=== PATIENT | female | born 1960 | race Caucasian/White ===

== ENCOUNTER 2021-09-04 16:00 | Outpatient (RCR) | payer OTHER, SELFPAY ==
--- NOTE | 2021-06-14 12:24 | PTOPEVAL ---
Thank you for referring Mikaela Gross to [facility].? The patient is scheduled to be seen for therapy? 2 x/week for 5 weeks. Please review, sign, date and return this plan of care JONY. I agree with and certify that the following plan of care is medically necessary. Referring Physician Date Attending Provider: Darryl Ovalles, MD Diagnosis chronic LBP Onset 03/27/21 Additional Evaluation Detail x-ray and MRI: bulging disc of L1-4 anterolisthesis L4-5, DDD of lumbar region. history of SIJ rotation with self-corrections. Subjective Information She injured her back at work Query Text:As Reported By Patient/ lifting a pt. She was denied Family services by work comp. 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 She has recently received chiropractor treatment with improved pain. She c/o back muscle spasm with all activities. C/o neck/and leg spasms due to the back. She c/o constant ache in her back with increased pain with any lifting. She has increased pain with work and household task, rolling. 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 Pain Assessment Lower Back Reported Pain Level 4 Pain Description Aching,Spasms Pain Frequency Continuous Lowest Pain Intensity 2 Greatest Pain Intensity 10 Pain Aggravating Factors Bending,Exercise/Activity, Lifting,Sitting,Weight Bearing /Standing Cervical and Lumbar ROM Lumbar ROM Lumbar Flexion Active Mid Cavazos:Hands to: Lateral Flexion distal thigh:Active Hands to: Lumbar Comments 50% trunk ext with primary motion thoracic region vs lumbar pain with all trunk motions Cervical and Lumbar Muscle Testing Lumbar Strength Upper Abdominal Strength 3 Fair Lower Abdominal Strength 3 Fair Upper Back Extension 3 Fair Lower Back Extension 3 Fair Lower Extremity Muscle Strength Testing Hip Strength Right Hip Flexion
--- NOTE | 2021-06-26 12:00 | PCPTNOTE ---
Patient called & cancelled scheduled appointment this date due to having to work late today.
--- NOTE | 2021-07-11 15:53 | PCPTNOTE ---
Patient did not show up for scheduled appointment this date. Called and spoke with Pt, she apologized for forgetting about appointment. Reminded Pt of upcoming appointment on Thursday07/16/2019 @ 16:00.
--- NOTE | 2021-07-18 17:00 | PTOPEVAL ---
PHYSICAL THERAPY PROGRESS REPORT Thank you for referring Mikaela Gross to [facility] [place].? The patient is scheduled to be seen for therapy? 2x/week for 5 weeks. Please review, sign, date and return this plan of care JONY. I agree with and certify that the following plan of care is medically necessary. Referring Physician Date Diagnosis chronic LBP Onset 03/27/21 Additional Evaluation Detail x-ray and MRI: bulging disc of L1-4 anterolisthesis L4-5, DDD of lumbar region. history of SIJ rotation with self-corrections. Subjective Information states that she was starting Query Text:As Reported By Patient/ to feel some improvement. The Family Dry needling caused some spasms into her low back so she would not like to do that again. Self Report Pain Assessment Lower Back Reported Pain Level 4 Pain Description Aching,Spasms,Tightness Pain Frequency Continuous Pain Aggravating Factors Bending,Exercise/Activity, Lifting,Sitting,Weight Bearing /Standing Pain Score Pain Score 4: Self Report Interventions Used Interventions Used By Clinicians Education,Exercise Pain Relief Interventions Used By Heat Patient Cervical and Lumbar ROM Lumbar ROM Lumbar Flexion Active Ankle Query Text:Hands to: Lateral Flexion distal thigh Query Text:Active Hands to: Lumbar Comments hanane's sign upon return to standing Cervical and Lumbar Muscle Testing Lumbar Strength Upper Abdominal Strength 3 Fair Lower Abdominal Strength 3 Fair Upper Back Extension 3 Fair Lower Back Extension 3 Fair Lower Extremity Muscle Strength Testing Hip Strength Right Hip Flexion Strength 5 Normal Hip Extension Strength 4 Good Hip Abduction Strength 4- Good - Left Hip Flexion Strength 4 Good Hip Extension Strength 3+ Fair + Hip Abduction Strength 3 Fair Knee Strength Bilateral Knee Flexion Strength 5 Normal Knee Extension Strength 5 Normal Muscle Length Testing Muscle Length Testing Two-Joint Hip Flexor Shortened Muscles Short (R) Iliopsoas,Short (L) Iliopsoas,Short (R) Rectus Femoris,Short (L) Rectus Femoris,Short (R) Ilial Tib Band,Short (L) Ilial Tib Band Piriformis w/Hip Neutral
--- NOTE | 2021-08-22 17:17 | PCPTNOTE ---
Patient called & cancelled scheduled appointment this date due to not feeling well.
--- NOTE | 2021-08-26 17:11 | PTOPEVAL ---
PHYSICAL THERAPY PROGRESS REPORT Thank you for referring Mikaela Gross to [facility].? The patient is scheduled to be seen for therapy? 2x/week for 6 weeks. Please review, sign, date and return this plan of care JONY. I agree with and certify that the following plan of care is medically necessary. Referring Physician Date Attending Provider: Darryl Ovalles, MD Diagnosis chronic LBP Onset 03/27/21 Additional Evaluation Detail x-ray and MRI: bulging disc of L1-4 anterolisthesis L4-5, DDD of lumbar region. history of SIJ rotation with self-corrections. Subjective Information continues to feel overall Query Text:As Reported By Patient/ better and improved. Oswestry Family score was initially 58% limited and is now ) Self Report Pain Assessment Lower Back Reported Pain Level 3 Pain Description Aching,Spasms,Tightness Pain Frequency Continuous Pain Aggravating Factors Bending,Exercise/Activity, Lifting,Sitting,Weight Bearing /Standing Cervical and Lumbar ROM Lumbar ROM Lumbar Flexion Active Ankle Query Text:Hands to: Lateral Flexion distal thigh Query Text:Active Hands to: Lumbar Comments no hanane's sign today Lower Extremity Muscle Strength Testing Hip Strength Right Hip Flexion Strength 5 Normal Hip Extension Strength 4 Good Hip Abduction Strength 4- Good - Left Hip Flexion Strength 5 Normal Hip Extension Strength 4- Good - Hip Abduction Strength 4- Good - Knee Strength Bilateral Knee Flexion Strength 5 Normal Knee Extension Strength 5 Normal Muscle Length Testing Muscle Length Testing Two-Joint Hip Flexor Shortened Muscles Short (R) Iliopsoas,Short (L) Iliopsoas,Short (R) Rectus Femoris,Short (L) Rectus Femoris,Short (R) Ilial Tib Band,Short (L) Ilial Tib Band Piriformis w/Hip Neutral (R) Moderate Tightness,(L) Moderate Tightness Right Prone Hip Internal Rotator Length 15 (degrees) Left Prone Hip Internal Rotator Length ( 22 degrees) Right Straight Leg Raise Muscle Length ( 80 degrees) Left Straight Leg Raise Muscle Length ( 80 degrees) Left Hamstring Length -15 Query Text:(90 - 90 Position) Right Hamstring Length -15 Query Text:(90 - 90 Position) Postu
--- NOTE | 2021-09-05 08:38 | PCPTNOTE ---
This treatment is being continued on visit number [id number]. Please see documentation on both accounts to view progress. Completed interventions, outcomes, and problems have been marked as Inactive to facilitate the copying of the Care plan routine for recurring accounts.
== END 2021-09-05 07:30 | disposition home or self-care (01) ==
LOC: ANHPT 16:00
PROVIDERS: PCP Internal Medicine; Visit Provider Internal Medicine
DX: M54.50 Low back pain, unspecified (principal); G89.29 Other chronic pain
CPT/HCPCS: 97012; 97014; 97110; 97112; 97140; 97162; 97530; G0283

== ENCOUNTER 2021-12-04 16:15 | Outpatient (RCR) | payer OTHER, SELFPAY ==
--- NOTE | 2021-09-05 08:39 | PCPTNOTE ---
The treatment documented on this account is a continuation of the treatment documented on visit number [id number]. Please see documentation on both accounts to view progress. The Plan of Care has been transitioned and updated within the new V#. I have addressed and agree with the discipline specific Problems, Interventions, and Goals for the current certification period. Completed interventions, outcomes, and problems have been marked as Inactive to facilitate the copying of the Care plan routine for recurring accounts.
--- NOTE | 2021-09-17 08:23 | PCPTNOTE ---
Patient called & cancelled scheduled appointment this date due to having to work.
--- NOTE | 2021-09-23 16:25 | PCPTNOTE ---
Patient did not show up for scheduled appointment this date; called patient who answered the phone stating she meant to call and canceled due to increase back pain even calling off work due to taking medication just forgot.
--- NOTE | 2021-10-18 17:16 | PTOPPROG ---
Evaluation Information Assessment Status Progress Diagnosis chronic LBP Onset 03/27/21 Subjective Information Pt states she continues to have good days and bad days, she reports today is a bad day. She reports this includes increased muscle spasms. She states she feels like she is improvement but no where back to normal yet. She states she has tweaked her back since her last progress report. She reports her pain and stiffness in worse in the morning and makes getting out of bed and getting ready really challenging. She reports being limited to lifting 20lbs without an increase in back pain later. Clinical Summary Mikaela presents to therapy today for her progress report following 19 visits of therapy to treat her back pain. She reports she is almost to where she was, prior to tweaking her back again. She demonstrates slow changes but improvement in her LE strength, LE motion, as well as lumbar ROM, and core strength. She reports 60% disability on the modified Oswestry questionnaire. She reports good compliance with her HEP. Continuation of skilled physical therapy services are indicated to address the remaining deficits, to manage pain, to promote unlimited functional mobility, and to return to baseline. Treatment frequency 2x/wk for 5 wks These treatments will address the objective and functional deficits as defined above. The patient will be advanced safely and appropriately in order for the patient to progress towards his/her prior level of function. Additional exercises will be introduced and as well as a comprehensive home exercise program upon discharge, if needed, ?to ensure carryover of functional gains achieved in the clinic. This treatment plan has been reviewed and agreement upon by the patient.
--- NOTE | 2021-11-19 16:35 | PTOPPROG ---
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 She states this caused her back to spasm, she tried to help this with heating pads. She states even prior to this event her pain was getting down to a 1-2/10. She states she cannot work without her back brace. She states she cannot do her normal job without her back brace. Assessment PT Clinical Summary Mikaela presents to therapy today for her progress report following 26 visits of skilled therapy. Today she demonstrates good LE strength, fair lumbar motion, and poor core strength. She demonstrates guarding when transitioning in between motions. She continues to have tenderness to palpation with visible muscle spasms throughout her lumbar paraspinals. Continuation of skilled physical therapy services are indicated to address the deficits noted above, to manage pain, and to return to baseline function. Modified Oswetry: , 46% disability Plan of Care Interventions Electrical Stimulation,Gait Training,Hot Pack/Cold Pack,Manual Therapy,Mechanical Traction,Neuro Re- education,Patient/Caregiver Educati,Therapeutic Activities,Therapeutic Exercise PT Services Indicated Yes Treatment Frequency and 2x/wk for 4 wks Duration These treatments will address the objective and functional deficits as defined above. The patient will be advanced safely and appropriately in order for the patient to progress towards his/her prior level of function. Additional exercises will be introduced and as well as a comprehensive home exercise program upon discharge, if needed, ?to ensure carryover of functional gains achieved in the clinic. This treatment plan has been reviewed and agreement upon by the patient.
--- NOTE | 2021-12-06 16:17 | PCPTNOTE ---
This treatment is being continued on visit number [id number]; Please see documentation on both accounts to view progress. Completed interventions, outcomes, and problems have been marked as Inactive to facilitate the copying of the Care plan routine for recurring accounts.
== END 2021-12-06 12:45 | disposition home or self-care (01) ==
LOC: ANHPT 16:15
PROVIDERS: PCP Internal Medicine; Visit Provider Internal Medicine
DX: M54.50 Low back pain, unspecified (principal); G89.29 Other chronic pain
CPT/HCPCS: 97012; 97014; 97110; 97112; 97140; 97530; 99199; G0283

== ENCOUNTER 2021-12-25 15:30 | Outpatient (RCR) | payer OTHER, SELFPAY ==
--- NOTE | 2021-12-06 16:20 | PCPTNOTE ---
This treatment is being continued from visit number [id number]. Please see documentation on both accounts to view progress. Completed interventions, outcomes, and problems have been marked as Inactive to facilitate the copying of the Care plan routine for recurring accounts.
--- NOTE | 2021-12-25 16:26 | PTOPDC ---
Assessment and note entered by Stephanie Reddy, PT Evaluation Information Assessment Status Discharge Diagnosis chronic LBP Onset 03/27/21 Subjective Information Mikaela reports: feel like she is worse, had more injuries to back and progressively getting worse; trying to increase her activity at home, doing more and that causes her spasms; cannot vaccum hurts too much; stairs are problem--have to clutch the hand rails- jar back and hurts; using the back brace all day, was trying to wean off it but after one week double injury--have to wear all time; when off for 15 minutes, pain more; Reported Pain Level Pain Score Self Report Additional Pain Score Comments pain range of 2-9/10; constant ache in center of her back; stiff back when wake up in the morning; compensating more and thoracic area now hurts; had to call off work yesterday due to more pain; decrease pain with hot shower, heating pad, aleve- not take much due to upset her stomach; stretching helps; the ball exercises help, do not have a ball at home, discussed obtaining one for home stretching; have not been using her home stim due to not able to put it on herself--reviewed and she is able to reach to her back for pad placement; tolerances with walking/standin min; sitting 30 min; sleeping 2 hours at time, change positions often; have B shoe orthotics, L one rubbed a sore and trying to heal it Assessment PT Clinical Summary Mikaela has received 33 PT sessions, from June to today. Compared to the last reeval: pain rating at the low rating decreased from 5 to 2/10 and high rating is the same 9/10; she continues to use a back brace during day to manage her pain; standing trunk flexion, extension and rotation R/L ranges are the same and all increase pain; slight increase in hip strength, but still has weakness in hip abduction motion; She has a home exercise program and has pain management techniques to ease her pain. She voiced frustration about continued pain with activity, home and self care tasks, and with working. The goals were not achieved for pain rating, ROM, strength; the education
== END 2021-12-26 08:15 | disposition home or self-care (01) ==
LOC: ANHPT 15:30
PROVIDERS: PCP Internal Medicine; Visit Provider Internal Medicine
DX: M54.50 Low back pain, unspecified (principal); G89.29 Other chronic pain
CPT/HCPCS: 97014; 97110; 97140; 97530; G0283